=== PATIENT | female | born 1930 | race Caucasian/White ===

== ENCOUNTER 2018-03-06 20:56 | Inpatient (IN) | payer MEDICARE, OTHER ==
[2018-03-06] MEDS: ALBUTEROL 0.5% (NEB) 2.5 MG/0.5 ML AMP INH (21:46)
[2018-03-06] MEDS: IPRATROPIUM (NEB) 0.5 MG/2.5 ML AMP INH (21:46)
[2018-03-06 22:27] LABS: WHITE BLOOD COUNT 9.4 10^3/ul (4.8-10.8)
[2018-03-06 22:27] LABS: ABNORMAL IP MESSAGE 1; HEMOGLOBIN 12.2 g/dl (12.0-16.0); MEAN CORPUSCULAR HEMOGLOBIN 31.4 pg (29.0-33.0); MEAN CORPUSCULAR HGB CONC 33.9 g/dl (32.0-37.0); MEAN CORPUSCULAR VOLUME 92.5 fl (82.0-101.0); MEAN PLATELET VOLUME 12.7 fl (7.4-10.4); PLATELET COUNT 60 10^3/UL (140-415); RED BLOOD COUNT 3.89 10^6/ul (4.20-5.40); RED CELL DISTRIBUTION WIDTH 13.6 % (11.5-14.5)
[2018-03-06] MEDS: IBUPROFEN 600 MG TAB PO (22:29)
[2018-03-06] MEDS: SODIUM CHLORIDE 0.9% 1L BAG IV* (22:30)
[2018-03-06] MEDS: CEFTRIAXONE 1 GM/50 ML (PMX) 50 ML IVPB (22:30)
[2018-03-06] MEDS: ENALAPRILAT 1.25 MG INJ IV ×2 (22:30→22:38)
[2018-03-06 22:34] LABS: Arterial Base Excess -2.1 mmol/L (-3.0-3); Arterial COHb 0.2 % (0.0-3.0); Arterial Fraction of Oxyhgb 98.5 % (93.0-99.0); Arterial HCO3 21.3 mmol/L (22.0-26.0); Arterial MetHb 0.3 % (0.0-1.5); Arterial pCO2 32.5 mmhg (35-45); MODE MASK - SIMPLE; Site Right Brachial
[2018-03-06 22:38] LABS: ADD MAN DIFF? YES; POSITIVE DIFF @See below
[2018-03-06 23:07] LABS: EOSINOPHILS % (M) 1 % (0-7); LYMPHOCYTES #M 1.3 10^3/ul (0.8-2.9); LYMPHOCYTES % (M) 14 % (15-51); MONOCYTE #M 0.6 10^3/ul (0.3-0.9); MONOCYTES % (M) 7 % (0-11); PLATELET ESTIMATE DECREASED; SEGMENTED NEUTROPHILS (M) % 78 % (39-77); SMUDGE%M 3 % (0-0)
[2018-03-06] MEDS: METHYLPREDNISOLONE 125 MG INJ IV (23:15)
[2018-03-06 23:20] LABS: INR 1.13; PROTIME 14.7 Sec (11.9-14.9); PT RATIO 1.1
[2018-03-06 23:37] LABS: ALANINE AMINOTRANSFERASE 24 IU/L (13-69); ALBUMIN 3.6 g/dl (3.3-4.9); ALBUMIN/GLOBULIN RATIO 1.16; ALKALINE PHOSPHATASE 94 IU/L (42-121); ANION GAP 10 (5-13); ASPARTATE AMINO TRANSFERASE 35 IU/L (15-46); BILIRUBIN,INDIRECT 0.4 mg/dl (0-1.1); BILIRUBIN,TOTAL 0.4 mg/dl (0.2-1.3); BLOOD UREA NITROGEN 25 mg/dl (7-20); CALCIUM 8.3 mg/dl (8.4-10.2); CARBON DIOXIDE 22 mmol/L (21-31); CHLORIDE 105 mmol/L (97-110); CREATININE 1.37 mg/dl (0.44-1.00); GLUCOSE 192 mg/dl (70-220); LIPASE 242 U/L (23-300); POTASSIUM 4.9 mmol/L (3.5-5.1); SODIUM 137 mmol/L (135-144); TOTAL PROTEIN 6.7 g/dl (6.1-8.1)
[2018-03-06 23:48] LABS: B-TYPE NATRIURETIC PEPTIDE 1940 PG/ML (0-450)
[2018-03-06 23:54] LABS: TROPONIN-I 0.422 ng/ml (0.000-0.120)
[2018-03-07] MEDS: FUROSEMIDE 40 MG INJ IV (00:12)
[2018-03-07] MEDS: ASPIRIN 81 MG TAB PO (00:13)
[2018-03-07 01:26] LABS: ADD UMIC YES; UR ASCORBIC ACID NEGATIVE (NEGATIVE); UR BILIRUBIN (Dip) NEGATIVE (NEGATIVE); UR BLOOD (Dip) 1+ mg/dL (NEGATIVE); UR CLARITY CLEAR (CLEAR); UR COLOR STRAW (YELLOW); UR GLUCOSE (Dip) 1+ mg/dL (NEGATIVE); UR KETONES (Dip) NEGATIVE (NEGATIVE); UR LEUKOCYTE ESTERASE (Dip) NEGATIVE Leu/ul (NEGATIVE); UR NITRITE (Dip) NEGATIVE (NEGATIVE); UR RBC 3 /HPF (0-5); UR SPECIFIC GRAVITY (Dip) 1.012 (1.003-1.030); UR TOTAL PROTEIN (Dip) 2+ mg/dl (NEGATIVE); UR UROBILINOGEN (Dip) NEGATIVE (NEGATIVE); UR WBC 1 /HPF (0-5)
[2018-03-07] MEDS ORDERED: GLUCOSE GEL 15 GRAM TUBE PO ×2 (13:00)
[2018-03-07] MEDS ORDERED: DEXTROSE 50% 50 ML SYRINGE IV ×2 (13:00)
[2018-03-07] MEDS ORDERED: GLUCOSE GEL 15 GRAM TUBE BUCCAL (13:00)
[2018-03-07] MEDS ORDERED: GLUCAGON 1 MG INJ IM (13:00)
[2018-03-07] MEDS: BENAZEPRIL 40 MG TAB PO (13:16)
[2018-03-07] MEDS: ALLOPURINOL 100 MG TAB PO (13:16)
[2018-03-07] MEDS: GABAPENTIN 300 MG CAP PO ×2 (13:16→20:42)
[2018-03-07] MEDS: LOSARTAN 50 MG TAB PO (13:16)
[2018-03-07] MEDS: LINAGLIPTIN 5 MG TABLET PO (13:20)
[2018-03-07] MEDS: INSULIN ASPART [NOVOLOG] 3 ML PEN SC ×2 (13:38→17:13)
[2018-03-07 15:05] LABS: B-TYPE NATRIURETIC PEPTIDE 5650 PG/ML (0-450)
[2018-03-07] MEDS: glipiZIDE 10 MG TAB PO (17:04)
[2018-03-07] MEDS: ACCU-CHEK XX ×2 (17:04→20:58)
[2018-03-07] MEDS: ENOXAPARIN 60 MG/0.6 ML SYG SC (17:14)
[2018-03-07 18:56] LABS: TROPONIN-I 0.264 ng/ml (0.000-0.120)
[2018-03-07] MEDS: PRAMIPEXOLE 0.25 MG TAB PO (20:42)
[2018-03-07] MEDS: AMLODIPINE 5 MG TAB GTB (20:45)
[2018-03-08 01:17] LABS: TROPONIN-I 0.232 ng/ml (0.000-0.120)
[2018-03-08] MEDS: LEVOTHYROXINE 25 MCG TAB PO (07:00)
[2018-03-08 07:28] LABS: TROPONIN-I 0.161 ng/ml (0.000-0.120)
[2018-03-08] MEDS: ACCU-CHEK XX ×4 (07:48→21:00)
[2018-03-08] MEDS: INSULIN ASPART [NOVOLOG] 3 ML PEN SC ×2 (07:56→17:04)
[2018-03-08] MEDS: BENAZEPRIL 40 MG TAB PO (08:04)
[2018-03-08] MEDS: LINAGLIPTIN 5 MG TABLET PO (08:05)
[2018-03-08] MEDS: glipiZIDE 10 MG TAB PO ×2 (08:05→16:59)
[2018-03-08] MEDS: ASPIRIN (EC) 81 MG TAB PO (08:05)
[2018-03-08] MEDS: AMLODIPINE 5 MG TAB GTB ×2 (08:05→20:58)
[2018-03-08] MEDS: ALLOPURINOL 100 MG TAB PO (08:06)
[2018-03-08] MEDS: LOSARTAN 50 MG TAB PO (08:06)
[2018-03-08] MEDS: GABAPENTIN 300 MG CAP PO ×3 (08:06→20:58)
[2018-03-08] MEDS: ENOXAPARIN 60 MG/0.6 ML SYG SC (08:09)
[2018-03-08 13:59] LABS: ADD MAN DIFF? NO
[2018-03-08 14:06] LABS: BASOPHILS % 0.1 % (0.0-2.0); EOSINOPHILS % 0.1 % (0.0-7.0); HEMATOCRIT 35.1 % (37.0-47.0); HEMOGLOBIN 11.7 g/dl (12.0-16.0); LYMPHOCYTES # 1.6 10^3/ul (0.8-2.9); LYMPHOCYTES % 13.7 % (15.0-51.0); MEAN CORPUSCULAR HEMOGLOBIN 31.3 pg (29.0-33.0); MEAN CORPUSCULAR HGB CONC 33.3 g/dl (32.0-37.0); MEAN CORPUSCULAR VOLUME 93.9 fl (82.0-101.0); MEAN PLATELET VOLUME 12.2 fl (7.4-10.4); MONOCYTES % 8.8 % (0.0-11.0); NEUTROPHIL # 8.9 10^3/ul (1.6-7.5); NEUTROPHILS % 76.9 % (39.0-77.0); PLATELET COUNT 120 10^3/UL (140-415); RED BLOOD COUNT 3.74 10^6/ul (4.20-5.40); RED CELL DISTRIBUTION WIDTH 13.5 % (11.5-14.5)
[2018-03-08 14:06] LABS: WHITE BLOOD COUNT 11.6 10^3/ul (4.8-10.8)
[2018-03-08 14:25] LABS: ANION GAP 11 (5-13); BLOOD UREA NITROGEN 46 mg/dl (7-20); CALCIUM 8.6 mg/dl (8.4-10.2); CARBON DIOXIDE 20 mmol/L (21-31); CHLORIDE 108 mmol/L (97-110); CREATININE 1.08 mg/dl (0.44-1.00); GLUCOSE 140 mg/dl (70-220); POTASSIUM 4.2 mmol/L (3.5-5.1); SODIUM 139 mmol/L (135-144)
[2018-03-08 15:03] LABS: FREE T4 (FREE THYROXINE) 1.05 ng/dl (0.85-1.93)
[2018-03-08] MEDS: ALBUTEROL/IPRATROPIUM (NEB) 3 ML AMP HHN (16:49)
[2018-03-08] MEDS: ISOSORBIDE DINITRATE 20 MG TAB PO (20:58)
[2018-03-08] MEDS: ATORVASTATIN 40 MG TAB PO (20:58)
[2018-03-08] MEDS: PRAMIPEXOLE 0.25 MG TAB PO (20:58)
[2018-03-09] MEDS: ALBUTEROL/IPRATROPIUM (NEB) 3 ML AMP HHN ×3 (01:55→15:04)
[2018-03-09] MEDS: LEVOTHYROXINE 25 MCG TAB PO (07:12)
[2018-03-09 07:17] LABS: CHOL/HDL RATIO 3.7 RATIO; CREATINE KINASE 105 IU/L (23-200); HDL CHOLESTEROL 41 mg/dl (33-92); LDL CHOLESTEROL,CALCULATED 83 mg/dl; TRIGLYCERIDES 145 mg/dl (0-149)
[2018-03-09 07:17] LABS: CHOLESTEROL 153 mg/dl (100-200)
[2018-03-09] MEDS: ACCU-CHEK XX ×4 (07:25→21:00)
[2018-03-09] MEDS: glipiZIDE 10 MG TAB PO ×2 (07:25→17:22)
[2018-03-09 07:29] LABS: TROPONIN-I 0.079 ng/ml (0.000-0.120)
[2018-03-09] MEDS: INSULIN ASPART [NOVOLOG] 3 ML PEN SC ×2 (07:55→17:29)
[2018-03-09] MEDS: ISOSORBIDE DINITRATE 20 MG TAB PO ×3 (08:26→21:09)
[2018-03-09] MEDS: BENAZEPRIL 40 MG TAB PO (08:26)
[2018-03-09] MEDS: AMLODIPINE 5 MG TAB GTB ×2 (08:26→21:09)
[2018-03-09] MEDS: LOSARTAN 50 MG TAB PO (08:26)
[2018-03-09] MEDS: LINAGLIPTIN 5 MG TABLET PO (08:27)
[2018-03-09] MEDS: ALLOPURINOL 100 MG TAB PO (08:27)
[2018-03-09] MEDS: ASPIRIN (EC) 81 MG TAB PO (08:27)
[2018-03-09] MEDS: GABAPENTIN 300 MG CAP PO ×3 (08:27→21:09)
[2018-03-09] MEDS: ENOXAPARIN 60 MG/0.6 ML SYG SC (08:35)
[2018-03-09] MEDS: REGADENOSON 0.4 MG/5 ML SYG (11:05)
[2018-03-09] MEDS: PRAMIPEXOLE 0.25 MG TAB PO (21:08)
[2018-03-09] MEDS: ATORVASTATIN 40 MG TAB PO (21:09)
[2018-03-10] MEDS: ALBUTEROL/IPRATROPIUM (NEB) 3 ML AMP HHN ×4 (00:22→23:20)
[2018-03-10 06:41] LABS: ADD MAN DIFF? NO
[2018-03-10 06:46] LABS: WHITE BLOOD COUNT 6.1 10^3/ul (4.8-10.8)
[2018-03-10 06:46] LABS: BASOPHILS % 0.5 % (0.0-2.0); EOSINOPHILS # 0.2 10^3/ul (0.0-0.5); EOSINOPHILS % 2.8 % (0.0-7.0); HEMATOCRIT 33.1 % (37.0-47.0); HEMOGLOBIN 10.9 g/dl (12.0-16.0); LYMPHOCYTES # 1.6 10^3/ul (0.8-2.9); LYMPHOCYTES % 25.9 % (15.0-51.0); MEAN CORPUSCULAR HEMOGLOBIN 31.1 pg (29.0-33.0); MEAN CORPUSCULAR HGB CONC 32.9 g/dl (32.0-37.0); MEAN CORPUSCULAR VOLUME 94.6 fl (82.0-101.0); MEAN PLATELET VOLUME 12.1 fl (7.4-10.4); MONOCYTE # 0.8 10^3/ul (0.3-0.9); MONOCYTES % 13.2 % (0.0-11.0); NEUTROPHIL # 3.5 10^3/ul (1.6-7.5); NEUTROPHILS % 57.4 % (39.0-77.0); PLATELET COUNT 113 10^3/UL (140-415); RED CELL DISTRIBUTION WIDTH 13.8 % (11.5-14.5)
[2018-03-10] MEDS: LEVOTHYROXINE 25 MCG TAB PO (07:00)
[2018-03-10 07:11] LABS: ANION GAP 10 (5-13); BLOOD UREA NITROGEN 48 mg/dl (7-20); CALCIUM 8.8 mg/dl (8.4-10.2); CARBON DIOXIDE 23 mmol/L (21-31); CHLORIDE 108 mmol/L (97-110); CREATININE 1.11 mg/dl (0.44-1.00); GLUCOSE 159 mg/dl (70-220); POTASSIUM 4.5 mmol/L (3.5-5.1); SODIUM 141 mmol/L (135-144)
[2018-03-10] MEDS: glipiZIDE 10 MG TAB PO ×2 (07:25→17:52)
[2018-03-10] MEDS: ACCU-CHEK XX ×4 (07:47→20:56)
[2018-03-10] MEDS: INSULIN ASPART [NOVOLOG] 3 ML PEN SC ×2 (07:53→17:17)
[2018-03-10 08:16] LABS: INR 1.11; PROTIME 14.5 Sec (11.9-14.9); PT RATIO 1.1
[2018-03-10] MEDS ORDERED: VERAPAMIL 5 MG INJ (08:24)
[2018-03-10] MEDS ORDERED: FENTAnyl 50 MCG/ML VIAL (08:24)
[2018-03-10] MEDS ORDERED: IODIXANOL LOCM 100 ML BTL ×3 (08:24→10:38)
[2018-03-10] MEDS ORDERED: MIDAZOLAM 1 MG/ML 2 ML INJ (08:24)
[2018-03-10] MEDS ORDERED: HEPARIN 1000 UNITS/ML 10 ML INJ (08:24)
[2018-03-10] MEDS ORDERED: LIDOCAINE 2% (MDV) 20 ML INJ (08:24)
[2018-03-10] MEDS ORDERED: NITROGLYCERIN (IC) 100 MCG/ML INJ (08:25)
[2018-03-10] MEDS: ALLOPURINOL 100 MG TAB PO (09:00)
[2018-03-10] MEDS: GABAPENTIN 300 MG CAP PO ×3 (09:00→20:48)
[2018-03-10] MEDS: ISOSORBIDE DINITRATE 20 MG TAB PO ×3 (09:00→20:49)
[2018-03-10] MEDS: LINAGLIPTIN 5 MG TABLET PO (09:00)
[2018-03-10] MEDS: ENOXAPARIN 60 MG/0.6 ML SYG SC (09:00)
[2018-03-10] MEDS: ASPIRIN (EC) 81 MG TAB PO (09:00)
[2018-03-10] MEDS: LOSARTAN 50 MG TAB PO (09:00)
[2018-03-10] MEDS: AMLODIPINE 5 MG TAB GTB ×2 (09:00→20:49)
[2018-03-10] MEDS ORDERED: BIVALIRUDIN 250MG /NS 50 ML 50 ML IVPB (10:38)
[2018-03-10] MEDS ORDERED: IOHEXOL 350MG/ML 50 ML BTL (10:38)
[2018-03-10] MEDS ORDERED: ACETAMINOPHEN 325 MG TAB PO (11:30)
[2018-03-10] MEDS ORDERED: OXYCODONE/ACETAMINOPHEN (5/325) TAB PO (11:30)
[2018-03-10] MEDS ORDERED: morphine 2 MG INJ IV (11:30)
[2018-03-10] MEDS: SOD CHLORIDE 0.9% 1,000 ML IV (13:58)
[2018-03-10] MEDS: DIPHENHYDRAMINE 50 MG CAP PO (14:16)
[2018-03-10] MEDS: DIAZEPAM 5 MG TAB PO (14:16)
[2018-03-10] MEDS: CLOPIDOGREL 75 MG TAB PO (15:26)
[2018-03-10] MEDS: CLOPIDOGREL 300 MG TAB PO (15:48)
[2018-03-10] MEDS: ATORVASTATIN 40 MG TAB PO (20:48)
[2018-03-10] MEDS: PRAMIPEXOLE 0.25 MG TAB PO (20:49)
[2018-03-11] MEDS: LEVOTHYROXINE 25 MCG TAB PO (06:35)
[2018-03-11 07:07] LABS: ADD MAN DIFF? NO
[2018-03-11 07:14] LABS: BASOPHILS % 0.6 % (0.0-2.0); EOSINOPHILS # 0.1 10^3/ul (0.0-0.5); EOSINOPHILS % 1.8 % (0.0-7.0); HEMATOCRIT 32.1 % (37.0-47.0); HEMOGLOBIN 10.3 g/dl (12.0-16.0); LYMPHOCYTES # 1.3 10^3/ul (0.8-2.9); LYMPHOCYTES % 24.9 % (15.0-51.0); MEAN CORPUSCULAR HEMOGLOBIN 30.8 pg (29.0-33.0); MEAN CORPUSCULAR HGB CONC 32.1 g/dl (32.0-37.0); MEAN CORPUSCULAR VOLUME 96.1 fl (82.0-101.0); MONOCYTE # 0.7 10^3/ul (0.3-0.9); MONOCYTES % 13.1 % (0.0-11.0); NEUTROPHILS % 59.2 % (39.0-77.0); PLATELET COUNT 109 10^3/UL (140-415); RED BLOOD COUNT 3.34 10^6/ul (4.20-5.40); RED CELL DISTRIBUTION WIDTH 13.6 % (11.5-14.5)
[2018-03-11 07:38] LABS: ANION GAP 4 (5-13); BLOOD UREA NITROGEN 30 mg/dl (7-20); CALCIUM 8.2 mg/dl (8.4-10.2); CARBON DIOXIDE 23 mmol/L (21-31); CHLORIDE 112 mmol/L (97-110); GLUCOSE 147 mg/dl (70-220); POTASSIUM 4.4 mmol/L (3.5-5.1); SODIUM 139 mmol/L (135-144)
[2018-03-11] MEDS: ACCU-CHEK XX ×2 (07:46→12:02)
[2018-03-11] MEDS: INSULIN ASPART [NOVOLOG] 3 ML PEN SC (07:46)
[2018-03-11] MEDS: ALBUTEROL/IPRATROPIUM (NEB) 3 ML AMP HHN (08:25)
[2018-03-11] MEDS: LOSARTAN 50 MG TAB PO (08:33)
[2018-03-11] MEDS: CLOPIDOGREL 75 MG TAB PO (08:33)
[2018-03-11] MEDS: glipiZIDE 10 MG TAB PO (08:33)
[2018-03-11] MEDS: ISOSORBIDE DINITRATE 20 MG TAB PO ×2 (08:33→13:02)
[2018-03-11] MEDS: ASPIRIN (EC) 81 MG TAB PO (08:33)
[2018-03-11] MEDS: ALLOPURINOL 100 MG TAB PO (08:33)
[2018-03-11] MEDS: AMLODIPINE 5 MG TAB GTB (08:33)
[2018-03-11] MEDS: LINAGLIPTIN 5 MG TABLET PO (08:34)
[2018-03-11] MEDS: GABAPENTIN 300 MG CAP PO ×2 (08:34→13:02)
[2018-03-11] MEDS: ENOXAPARIN 60 MG/0.6 ML SYG SC (08:49)
== END 2018-03-11 17:10 | DRG 280 ==
LOC: E/R 20:56 → TEL 23:15
PROC: 4A023N7 Measurement of Cardiac Sampling and Pressure, Left Heart, Percutaneous Approach (ICD-10-PCS; principal; 2018-03-10 08:15)
PROC: B211YZZ Fluoroscopy of Multiple Coronary Arteries using Other Contrast (ICD-10-PCS; 2018-03-10 08:15)
DX: I21.4 Non-ST elevation (NSTEMI) myocardial infarction (principal); J96.00 Acute respiratory failure, unspecified whether with hypoxia or hypercapnia; I13.0 Hypertensive heart and chronic kidney disease with heart failure and stage 1 through stage 4 chronic kidney disease, or unspecified chronic kidney disease; N17.9 Acute kidney failure, unspecified; I50.9 Heart failure, unspecified; E03.9 Hypothyroidism, unspecified; J44.9 Chronic obstructive pulmonary disease, unspecified; J84.10 Pulmonary fibrosis, unspecified; M19.90 Unspecified osteoarthritis, unspecified site; M81.0 Age-related osteoporosis without current pathological fracture; E78.5 Hyperlipidemia, unspecified; H26.9 Unspecified cataract; E11.22 Type 2 diabetes mellitus with diabetic chronic kidney disease; N18.9 Chronic kidney disease, unspecified; I25.119 Atherosclerotic heart disease of native coronary artery with unspecified angina pectoris; I45.10 Unspecified right bundle-branch block; E11.21 Type 2 diabetes mellitus with diabetic nephropathy; Z79.4 Long term (current) use of insulin; Z79.02 Long term (current) use of antithrombotics/antiplatelets; Z79.82 Long term (current) use of aspirin
CPT/HCPCS: 36415; 36600; 71045; 78452; 80048; 80053; 80061; 81001; 82550; 82553; 82803; 82962; 83605; 83690; 83880; 84439; 84443; 84484; 85025; 85610; 85730; 87040; 87086; 87400; 93005; 93017; 93306; 93458; 94640; 94644; 94664; 96374; 96375; 99291-25